=== PATIENT | female | born 1980 | race Caucasian/White ===

== ENCOUNTER 2017-04-30 05:32 | Emergency (ER) | payer BC ==
[2017-04-30] MEDS ORDERED: Fluorescein Opthalmic Strip ONE (05:54)
[2017-04-30] MEDS ORDERED: Proparacaine 0.5% Opth 15 ML BOT ONE (05:54)
[2017-04-30] MEDS ORDERED: Ketorolac Tromethamine 60 MG/2 ML VIAL ONE (05:55)
[2017-04-30] MEDS ORDERED: Promethazine HCl 25 MG/ML VIAL ONE (05:59)
== END 2017-04-30 06:45 | disposition home or self-care (01) ==
LOC: NAV ERS 05:32
DX: H10.9 Unspecified conjunctivitis (principal); G44.209 Tension-type headache, unspecified, not intractable; F17.210 Nicotine dependence, cigarettes, uncomplicated
CPT/HCPCS: 96372; J1885; J2550